=== PATIENT | female | born 1960 | race Caucasian/White ===

== ENCOUNTER 2017-01-11 20:01 | Emergency (ER) | payer BC ==
[2017-01-11 21:08] VITALS: BP 159/96
[2017-01-11] MEDS ORDERED: Acetaminophen 325 MG Tab PO ONE (21:55)
[2017-01-11] MEDS ORDERED: Sertraline 50 MG Tab PO ONE (21:55)
[2017-01-11] MEDS ORDERED: Ibuprofen 600 MG Tab PO ONE (21:55)
--- NOTE | 2017-01-11 22:43 | EDM.PDOC ---
ED HPI GENERAL MEDICAL PROBLEM - General Chief Complaint: Genitourinary Problem Stated Complaint: UTI Time Seen by Provider: 01/11/17 21:00 Source of Information: Reports: Patient History Limitations: Reports: No Limitations - History of Present Illness INITIAL COMMENTS - FREE TEXT/NARRATIVE: Oxana Cooper is a 56 yo female who presents due to lower abdominal pressure. States symptoms feel like her bladder is continually full and she has a more significant urge to urinate. Symptoms have been worsening for 3-4 days. She notes that she has some low back pain, and she feels "off". No vomiting, diarrhea, vaginal bleeding, or lightheadedness. Patient took a prilosec for indigestion symptoms but has taken no other medications for her symptoms otherwise. She denies history of UTI's. She is s/p hysterectomy. lower middle abdominal pain Pain Score (Numeric/FACES): 4 - Related Data Allergies Allergy/AdvReac Type Severity Reaction Status Date / Time No Known Allergies Allergy Verified 01/11/17 21:28 Past Medical History HEENT History: Reports: Impaired Vision Gastrointestinal History: Reports: None Musculoskeletal History: Reports: None Psychiatric History: Reports: Anxiety, Depression Oncologic (Cancer) History: Reports: Uterine - Infectious Disease History Infectious Disease History: Reports: Chicken Pox, Measles, Mumps, Rubella - Past Surgical History HEENT Surgical History: Reports: Other (See Below) Other HEENT Surgeries/Procedures: face lift surgery. bilateral eye lift GI Surgical History: Reports: Appendectomy, Other (See Below) Other GI Surgeries/Procedures: abdominoplasty Female Surgical History: Reports: Breast Reduction, Hysterectomy Musculoskeletal Surgical History: Reports: None Social & Family History - Tobacco Use Smoking Status *Q: Never Smoker - Caffeine Use Caffeine Use: Reports: Coffee, Soda - Recreational Drug Use Recreational Drug Use: No ED ROS GENERAL - Review of Systems Review Of Systems: See Below Constitutional: Reports: Fever HEENT: Reports: No Symptoms Respiratory: Reports: No Symptoms Cardiovascular: Reports: No Symptoms GI/Abdominal: Reports: Nausea (no vomiting) : Reports: Urgency, Other (lower abdominal pressure) Musculoskeletal: Reports: Back Pain Skin: Reports: No Symptoms Neurological: Reports: No Symptoms ED EXAM, RENAL/ - Physical Exam Exam: See Below Exam Limited By: No Limitations General Appearance: Alert, WD/WN, No Apparent Distress Head: Atraumatic, Normocephalic Neck: Normal Inspection, Supple, Non-Tender, Full Range of Motion Respiratory/Chest: No Respiratory Distress, No Accessory Muscle Use Cardiovascular: Regular Rate, Rhythm GI/Abdominal: Soft, Non-Tender, No Distention Back Exam: CVA Tenderness (R) Extremities: Normal Inspection, Normal Range of Motion Neurological: Alert, Oriented, Normal Cognition, Normal Gait Psychiatric: Normal Affect, Normal Mood Course - Vital Signs Last Recorded V/S: Last Vital Signs Temp 100.6 F 01/11/17 21:07 Pulse 83 01/11/17 21:07 Resp 18 01/11/17 21:07 BP 159/96 H 01/11/17 21:07 Pulse Ox 98 01/11/17 21:07 - Orders/Labs/Meds Labs: Laboratory Tests 01/11/17 Range/Units 22:00 Urine Color Yellow Urine Appearance Cloudy Urine pH 6.0 (4.5-8.0) Ur Specific [place] 1.010 (1.008-1.030) Urine Protein 30 H (NEGATIVE) mg/dL Urine Glucose (UA) Normal (NEGATIVE) mg/dL Urine Ketones Negative (NEGATIVE) mg/dL Urine Occult Blood Large (NEGATIVE) Urine Nitrite Negative (NEGATIVE) Urine Bilirubin Negative (NEGATIVE) Urine Urobilinogen Normal (NORMAL) mg/dL Ur Leukocyte Esterase Large (NEGATIVE) Urine RBC 5-10 H (0-5) Urine WBC >100 H (0-5) Ur Epithelial Cells Moderate Urine Bacteria Many Urine Mucus Not seen Meds: Medications Discontinued Medications Generic Name Dose Route Start Last Admin Trade Name Bamq PRN Reason Stop Dose Admin Acetaminophen 650 mg 01/11/17 21:55 01/11/17 22:21 Tylenol PO 01/11/17 21:56 650 mg NOW ONE Administration Ibuprofen 600 mg 01/11/17 21:55 01/11/17 22:21 Motrin PO 01/11/17 21:56 600 mg ONETIME ONE Administration Sertraline HCl 50 mg 01/11/17 21:55 01/11/17 22:25 Zoloft PO 01/11/17 21:56 50 mg ONETIME ONE Administration Departure - Departure Time of Disposition: 22:50 Disposition: Home, Self-Care 01 Clinical Impression: Pyelonephritis - Discharge Information Instructions: Pyelonephritis, Adult, [id number] Referrals: PCP,None [Primary Care Provider] - Forms: ED Department Discharge Additional Instructions: Follow up with your primary care provider in 3-5 days for reevaluation. Return to the Emergency Department with uncontrolled fever, vomiting, or with worsened symptoms of any kind. - Problem List Review Problem List Initiated/Reviewed/Updated: Yes - Assessment/Plan Assessment:: 56 yo female with fever and urinary symptoms. Urinalysis is concerning for infection, and clinical picture is consistent with pyelonephritis. Benign abdominal exam, no cough or ST, and no rash. She does not have any significant comorbidities and she is appropriate for outpatient management. Patient was prescribed course of Keflex and will follow up with her PCP in 2-3 days for reevaluation. Return to the Emergency Department with inability to tolerate antibiotic, uncontrolled fever, or worsened symptoms otherwise.
== END 2017-01-11 22:50 | disposition home or self-care (01) ==
LOC: JP.ED 20:01
DX: N12 Tubulo-interstitial nephritis, not specified as acute or chronic (principal); H54.7 Unspecified visual loss; Z90.710 Acquired absence of both cervix and uterus; Z90.49 Acquired absence of other specified parts of digestive tract
CPT/HCPCS: 81001; 99284; A9270